=== PATIENT | female | born 1960 | race Caucasian/White ===

== ENCOUNTER 2016-08-02 11:16 | Emergency (ER) | payer OTHER ==
[2016-08-02 12:26] VITALS: BP 111/66
[2016-08-02 12:55] LABS: MANUAL DIFF NEEDED? NO
[2016-08-02 12:58] LABS: URINE CULTURE NEEDED? NO; URINE MICRO REVIEW NEEDED? NO; URINE SOURCE CLEAN CATCH
[2016-08-02 13:05] LABS: BILIRUBIN URINE NEGATIVE (NEGATIVE); BLOOD URINE NEGATIVE (NEGATIVE); COLOR STRAW; GLUCOSE URINE NEGATIVE (NEGATIVE); LEUKOCYTES URINE NEGATIVE (NEGATIVE); NITRITE URINE NEGATIVE (NEGATIVE); PROTEIN URINE NEGATIVE (NEGATIVE); SP GRAVITY URINE 1.006; TURBIDITY URINE CLEAR (CLEAR); UROBILINOGEN URINE NORMAL (NORMAL)
[2016-08-02 13:06] LABS: BASO% 0.1 % (0.0-0.8); EOS# 0.07 X1000 (0.0-0.7); HEMATOCRIT 41.9 % (37.0-47.0); HEMOGLOBIN 13.7 g/dL (12.0-16.0); LYMPH# 2.38 X1000 (1.2-3.4); LYMPH% 34.3 % (20.5-51.1); MCH 27.5 PG (27-31); MCHC 32.7 g/dL (33-37); MONO# 0.51 X1000 (0.11-0.59); MONO% 7.3 % (1.7-9.3); MPV 9.9 FL (7.4-10.4); NEUT% 57.3 % (42.2-75.2); PLT 281 X1000 (130-400); RBC 4.99 XMIL (4.2-5.4)
[2016-08-02 13:07] LABS: UR EPITHELIAL CELLS <10 /HPF (<10); URINE BACTERIA NEGATIVE /HPF; URINE RBC <10 /HPF (<10); URINE WBC <10 /HPF (<10)
[2016-08-02 13:21] LABS: AGAP 12; ALBUMIN 4.4 g/dL (3.5-5.0); ALKALINE PHOSPHATASE 82 U/L (32-104); AMYLASE 42 U/L (20-200); BUN 7 mg/dL (8-22); CALCIUM 9.5 mg/dL (8.8-10.2); CHLORIDE 98 mmol/L (98-107); COSMO 271; GOT 16 U/L (10-30); GPT 12 U/L (10-36); LIPASE 33 U/L (13-60); POTASSIUM 4.2 mmol/L (3.5-5.1); SODIUM 137 mmol/L (136-145); TCO2 27 mmol/L (25-35); TOTAL BILIRUBIN 0.19 mg/dL (0.20-1.00); TOTAL PROTEIN 6.6 g/dL (6.3-8.3)
== END 2016-08-02 17:00 | disposition left against medical advice (07) ==
LOC: ED 11:16
DX: R10.9 Unspecified abdominal pain (principal); R11.0 Nausea
CPT/HCPCS: 80053; 81001; 82150; 83690; 85025